=== PATIENT | male | born 1970 | race African-American/Black ===

== ENCOUNTER 2016-03-23 16:10 | Emergency (ER) | payer OTHER ==
[2016-03-23] MEDS ORDERED: Adacel (T-DAP) 0.5 ML VIAL ONE (16:32)
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
[2016-03-23] MEDS ORDERED: HYDROcodone/Acetaminophen 10/325 mg Tablet ONE (17:53)
--- NOTE | 2016-03-23 18:51 | RAD ---
FRONTAL VIEW CHEST: Date: 03/23/15 No prior comparison. INDICATION: Hypertension. Fall. FINDINGS: Lung bases are partially obscured by shallow depth of inspiration. Otherwise, no consolidation. No s ignificant effusion. Cardiomediastinal silhouette is accentuated by portable technique. IMPRESSION: No focal consolidation. Limited evaluation at the lower hemithoraces. POS: [facility]
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
== END 2016-03-23 18:27 | disposition home or self-care (01) ==
LOC: NAV ERS 16:10
DX: S01.01XA Laceration without foreign body of scalp, initial encounter (principal); W01.0XXA Fall on same level from slipping, tripping and stumbling without subsequent striking against object, initial encounter
CPT/HCPCS: 36416; 70450; 71010; 72125; 90471; 90715; 99001